=== PATIENT | male | born 1955 | race Caucasian/White ===

== ENCOUNTER → 2016-09-11 | Outpatient (CLI) | payer OTHER ==
[~2016-09-11] MED LIST: CRS/10 PO; PRLSR20 PO
[2016-09-11 09:27] LABS: HEMATOCRIT 48.4 % (42-52); MEAN CORPUSCULAR HEMOGLOBIN 31.5 pg (25-34); MEAN CORPUSCULAR HGB CONC 32.9 g/dl (32-36); MEAN PLATELET VOLUME 10.3 fL (7.4-10.4); PLATELET COUNT 244 K/uL (130-400); RED BLOOD COUNT 5.04 M/uL (4.7-6.1); WHITE BLOOD COUNT 7.84 K/uL (4.8-10.8)
[2016-09-11 09:41] LABS: ALT/SGPT 51 U/L (12-78); AST/SGOT 32 U/L (15-37); BLOOD UREA NITROGEN 15 mg/dl (7-18); BUN/CREATININE RATIO 13.7 (10-20); CARBON DIOXIDE 25 mmol/L (21-32); CHLORIDE 111 mmol/L (98-107); CHOLESTEROL 150 mg/dl (0-200); GLUCOSE 99 mg/dl (70-99); POTASSIUM 4.4 mmol/L (3.5-5.1); SODIUM 143 mmol/L (136-145); TRIGLYCERIDES 114 mg/dl (0-150); VERY LOW DENSITY LIPOPROT CALC 23 mg/dl
[2016-09-11 09:42] LABS: CALCIUM 9.4 mg/dl (8.5-10.1)
[2016-09-11 09:50] LABS: ESTIMATED AVERAGE GLUCOSE 120 mg/dl; HA1C FLAG Normal (Normal)
[2016-09-11 09:51] LABS: ALB/GLOB RATIO 1.1 (0.9-2); ALKALINE PHOSPHATASE 61 U/L (45-117); CHOLESTEROL/HDL RATIO 2.5; HDL CHOLESTEROL 59 mg/dl; LDL CHOLESTEROL CALCULATED 68 mg/dl; PROSTATE SPECIFIC ANTIGEN 0.868 ng/ml (0.000-4.000)
== END | disposition home or self-care (01) ==
LOC: C.LAB1850 07:35
PROVIDERS: ATTEND Internal Medicine Geriatric Medicine
DX: Z00.00 Encounter for general adult medical examination without abnormal findings (principal); E78.5 Hyperlipidemia, unspecified; M19.90 Unspecified osteoarthritis, unspecified site; R73.9 Hyperglycemia, unspecified

== ENCOUNTER → 2017-10-10 | Outpatient (CLI) | payer OTHER ==
--- NOTE | 2017-10-10 14:23 | DIAGNOSTIC IMAGING REPORT ---
CHEST 2 VIEWS ROUTINE HISTORY: 62 years-old Male CHEST PAIN acute atypical chest pain COMPARISON: None available TECHNIQUE: PA and lateral views of the chest FINDINGS: Cardiomediastinal and hilar silhouettes are within normal limits. There is no pneumothorax, pleural effusion, focal airspace consolidation or overt pulmonary edema. Mild right hemidiaphragmatic elevation. Bones of the chest appear grossly intact. IMPRESSION: No acute process. The above report was generated using voice recognition software. It may contain grammatical, syntax or spelling errors. Electronically signed by: Vinay Horton M.D. 10/10/2017 2:21 PM Dictated Date/Time: 10/10/2017 2:20 PM
== END | disposition home or self-care (01) ==
LOC: C.RADBC 14:07
PROVIDERS: ATTEND Physician Assistant Medical
DX: R07.89 Other chest pain (principal)

== ENCOUNTER → 2017-10-15 | Outpatient (CLI) | payer OTHER ==
--- NOTE | 2017-10-15 12:06 | DIAGNOSTIC IMAGING REPORT ---
SOFT TISS HEAD/NECK-THYROID HISTORY: Weight loss LOSING WEIGHT COMPARISON: None. FINDINGS: Right lobe: Maximum dimension 4.4 cm. Diffuse inhomogeneity of internal architecture. No well-defined nodular process. Left lobe: Maximum dimension 3.6 cm. Diffuse inhomogeneity of internal architecture. No well-defined nodules. Isthmus: No nodules. IMPRESSION: Diffusely heterogeneous thyroid bilaterally with no focal nodularity. Possibility of thyroiditis should be considered. The above report was generated using voice recognition software. It may contain grammatical, syntax or spelling errors. Electronically signed by: Esau Emanuel M.D. 10/15/2017 12:05 PM Dictated Date/Time: 10/15/2017 12:01 PM
== END | disposition home or self-care (01) ==
LOC: C.ULTR 11:19
PROVIDERS: ATTEND Physician Assistant Medical
DX: E06.1 Subacute thyroiditis (principal)

== ENCOUNTER 2023-09-04 11:18 | Inpatient (IN) ==
[2023-09-04] MEDS: ASPIRIN CHEW 324 MG PO STA (11:36)
[2023-09-04] MEDS: ONDANSETRON INJ 2 MG/ML 2 ML VIAL IV STA (11:36)
[2023-09-04] MEDS: METOPROLOL TARTRATE 1 MG/ML VIAL IV STA (11:38)
[2023-09-04] MEDS: TICAGRELOR 90 MG TAB PO ONE (11:38)
[2023-09-04] MEDS: HEPARIN SOD (PORCINE) 1000 UNIT/ML IV ONE (11:41)
[2023-09-04] MEDS: HEPARIN SOD (PORCINE) 1000 UNIT/ML ONE (11:41)
--- NOTE | 2023-09-04 11:48 | Emergency Department Note ---
Impression & Plan ST elevation myocardial infarction (STEMI), Chest pain ED Provider Note NAME: IVON LOGAN AGE: 68 SEX: M : 1955 ARRIVES VIA: Walk-In INFORMANT: Patient, ED PROVIDER(S): Rudy Shepherd DO CHIEF COMPLAINT: Chest pain HPI: The patient is a 68-year-old male who presented to the emergency department through triage for evaluation of chest pain. The patient noticed chest pain today while he was at rest at approximately 9 AM. The patient noticed some nausea. He had an episode of emesis. The patient denies having any fever. He denies having any coughing. He denies having any abdominal pain or back pain. The patient was seen in July of this year by his primary professor of languages. He is followed closely because of a family history of coronary artery disease. The patient did have a stress test last month with his primary care physician which showed no acute process. ROS: See above HPI for pertinent positives & negatives. A total of 10 systems reviewed and were otherwise negative. PAST MEDICAL HISTORY: See Below PAST SURGICAL HISTORY: See Below FAMILY HISTORY: See Below SOCIAL HISTORY: See Below HOME MEDICATIONS: See Below ALLERGIES: See Below VITALS: See Below PHYSICAL EXAMINATION: GENERAL: The patient is awake and alert. The patient is anxious appearing. EYES: The conjunctivae are clear. The pupils are round and reactive. EARS, NOSE, MOUTH AND THROAT: The nose is without any evidence of any deformity. NECK: The neck is nontender and supple. RESPIRATORY: Normal respiratory effort is noted there is no evidence of wheezing rhonchi or rales CARDIOVASCULAR: Regular rate and rhythm noted there no murmurs rubs or gallops normal S1 normal S2. GASTROINTESTINAL: The abdomen is soft. Abdomen is nontender. MUSCULOSKELETAL/EXTREMITIES: There is no evidence of gross deformity full range of motion is noted in the hips and shoulders. SKIN: There is no obvious evidence of any rash. There are no petechiae, pallor or cyanosis noted. Pulses were symmetric in both wrist. NEUROLOGIC: Patient is awake alert and oriented x3 MEDICAL DECISION MAKING: The patient is a 68-year-old male who presented to the emergency department for an evaluation of chest pain. The patient described chest pain that he felt was in his anterior chest and into his neck. The patient does not have a history of coronary artery disease but he has a strong family history of coronary artery disease. He has a sibling who had coronary artery disease with complications in his 50s. The patient was treated initially with aspirin. He was further treated with Brilinta heparin and Lopressor after he was evaluated by the paleobotanist in the emergency department. I discussed the patient's EKG with him. I did feel that he would be a good candidate for consideration for interventional cardiology involvement. After his interview with the patient the paleobotanist felt the patient should be evaluated in the [facility] for further management. I discussed the patient's condition also with the on-call [facility]ist. Triage Nursing notes reviewed. Vital Signs: reviewed and remarkable for elevated blood pressure. Differential diagnosis: Cardiac ischemia, aortic dissection, pulmonary embolism, pneumothorax, pneumonia, pericarditis, myocarditis, esophageal rupture, GERD, cholecystitis, pancreatitis, musculoskeletal, as well as other pathologies. ER treatment provided: See below Diagnostics interpreted by me: ECG: EKG was obtained in the emergency department my interpretation is normal sinus rhythm at 81 bpm. There is no ectopy. ST elevations were noted in the anterior leads with reciprocal changes in the inferior leads. This could be consistent with acute myocardial infarction, this was compared to a tracing from April 07, 2004. There is significant changes noted suggestive of ischemia. A second EKG was obtained in the emergency department. My interpretation is normal sinus rhythm at 82 bpm. There is no ectopy. ST segment elevations were noted in the anterior leads with reciprocal changes in the inferior leads. This compares similar to the initial tracing. Cardiac Monitoring: An order was placed for continuous cardiac monitoring. The monitor shows a rate of 75 bpm with sinus rhythm Laboratory studies: As stated above and show below. Imaging studies: See below. Radiographic imaging was reviewed by myself Consultation(s): I discussed this case with Dr. Mendoza who is on for interventional cardiology. He evaluated the patient in the emergency department. I discussed this case with Dr. Martin [facility] ED COURSE: Procedures: none Critical Care: I have personally spent greater than 35 minutes of critical care time in the direct management of this patient. This includes bedside care, interpretation of diagnostic studies, and testing, discussion with consultants, patient, and family members, and other required patient management activities. This 35 minutes is in excess of all separately billable procedures. 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 Medical History Thyroid disease Bilateral carotid artery disease LAST CHECK AFTER RADIATION COMPLETE LAST YR, "BOTH UNDER 50%" Inguinal hernia Bilateral Tubular adenoma of colon HX Gastroesophageal reflux disease Surgical History History of biopsy 09/03/19 - Right Base of Tongue - Squamous Cell - HPV Pos Status post tendon repair HX 2011 - left arm--hardware in place History of colonoscopy with polypectomy 2014 History of tooth extraction 2016 - a cracked molar History of surgical removal of pilonidal cyst 1968, 1970, 1992 History of tonsillectomy as a child Family History Mother , Passed age 90 of dementia complications Alzheimer disease Hx of CABG Myocardial infarction Brother Coronary heart disease Hx of CABG Father Hx of CABG Sister No problems noted. Other Has no children No family history of adverse response to anesthesia Denies family history of Ovarian cancer Prostate cancer Breast cancer Lung cancer Colorectal cancer Cancer Social History Smoking Status: Never smoker Second Hand Exposure: Yes (Mother and Father smoked in home); Do You Dip or Chew Tobacco: No; Hx Alcohol Use: Yes Alcohol type: wine and hard liquor Alcohol Intake Frequency Comment: Wine with dinner at times daily sometimes Hx Substance Use: No Preferred Language: Qatari Communication Ability: Effective Visual Impairment: Limited Hearing Ability: Normal Children Teacher Required: No Beliefs That Will Affect Care: Mormonism marital status: Current Living Situation: Spouse Current Living Situation Comment: current occupational status: retired current occupation: Works for [employer] How many Children do You have: 0 Feels Safe at Home: Yes Childhood Exposure to Second-Hand Smoke: Yes Diet: regular caffeine: Yes (Daily 1-2 cups/day ) during the past year weight has: remained stable Dental Care, Regularly: Yes Physical Activity Frequency: 3-4 Times per Week Seatbelt Use: always Sunscreen Use: Yes Assistive Devices: Glasses Allergies Allergies Allergy/AdvReac Type Severity Reaction Status Date / Time atorvastatin [From Lipitor] Allergy Unknown heart Verified 08/07/23 11:37 palpitation bee venom protein (honey bee) Allergy Unknown swelling Verified 08/07/23 11:37 as a child Penicillins Allergy Unknown SWELLING Verified 08/07/23 11:37 A CHILD simvastatin Allergy Unknown heart Verified 08/07/23 11:37 palpitation tetanus toxoid, adsorbed Allergy Unknown SWELLING Verified 08/07/23 11:37 A CHILD Home Meds Previous Rx's Medication Instructions Recorded meloxicam 15 mg tablet 15 mg PO UD PRN back pain #30 tabs 08/28/21 omeprazole 20 mg capsule,delayed 20 mg PO QAM #90 caps 07/22/23 release levothyroxine 88 mcg tablet 88 mcg PO QAM #90 tabs 08/07/23 rosuvastatin 10 mg tablet 10 mg PO DAILY #90 tabs 08/07/23 Results & Data (ED) Vital Signs Vital Signs - 24 hr 09/04/23 11:20 09/04/23 11:33 09/04/23 11:38 Temperature 36.1 C L Temperature Source Temporal Artery Scan Pulse Rate 84 79 89 Pulse Rate [Apical] Pulse Rhythm Regular Regular Pulse Strength Normal Respiratory Rate 20 20 Respiratory Effort / Characteristics Non-Labored Spontaneous Respiratory Depth Normal Respiratory Pattern Blood Pressure 210/105 H Blood Pressure [Left Arm] Blood Pressure [Right Arm] Blood Pressure Mean 140 Blood Pressure Mean [Left Arm] Blood Pressure Mean [Right Arm] Blood Pressure Position Sitting Blood Pressure Position [Left Arm] Pulse Oximetry 98 97 Oxygen Delivery Method Room Air Room Air Sepsis Recent Fever Within 48 Hours No Sepsis New/Unexplained Change in Mental Status N/A Sepsis Action Taken by Nursing No Action Required 09/04/23 11:44 09/04/23 13:30 09/04/23 13:45 Temperature Temperature Source Pulse Rate Pulse Rate [Apical] 74 76 75 Pulse Rhythm Pulse Strength Respiratory Rate 20 16 16 Respiratory Effort / Characteristics Non-Labored Spontaneous Non-Labored Spontaneous Non-Labored Spontaneous Respiratory Depth Normal Normal Normal Respiratory Pattern Regular Regular Blood Pressure Blood Pressure [Left Arm] 152/92 H 155/94 H Blood Pressure [Right Arm] 191/113 H Blood Pressure Mean Blood Pressure Mean [Left Arm] 112 114 Blood Pressure Mean [Right Arm] 139 Blood Pressure Position Blood Pressure Position [Left Arm] Sitting Sitting Pulse Oximetry 97 95 95 Oxygen Delivery Method Room Air Room Air Sepsis Recent Fever Within 48 Hours Sepsis New/Unexplained Change in Mental Status Sepsis Action Taken by Nursing 09/04/23 14:00 Temperature Temperature Source Pulse Rate Pulse Rate [Apical] 75 Pulse Rhythm Pulse Strength Respiratory Rate 16 Respiratory Effort / Characteristics Non-Labored Spontaneous Respiratory Depth Normal Respiratory Pattern Regular Blood Pressure Blood Pressure [Left Arm] Blood Pressure [Right Arm] Blood Pressure Mean Blood Pressure Mean [Left Arm] Blood Pressure Mean [Right Arm] Blood Pressure Position Blood Pressure Position [Left Arm] Sitting Pulse Oximetry 95 Oxygen Delivery Method Room Air Sepsis Recent Fever Within 48 Hours Sepsis New/Unexplained Change in Mental Status Sepsis Action Taken by Long-Term Medications Current Medication List: was personally reviewed by me Laboratory Data Attestation: I reviewed the patient's lab results. 09/04/23 11:26 09/04/23 11:26 Lab Results 09/04/23 09/04/23 09/04/23 Range/Units 11:26 12:15 12:57 WBC 8.72 (4.8-10.8) K/ul RBC 5.48 (4.70-6.10) M/uL Hgb 17.4 (14.0-18.0) g/dl Hct 51.0 (42.0-52.0) % MCV 93.1 (80.0-100.0) fL MCH 31.8 (25.0-34.0) pg MCHC 34.1 (32.0-36.0) g/dL RDW Std Deviation 45.1 (36.4-46.3) fL RDW Coeff of Lorrie 13.2 (11.5-14.5) % Plt Count 295 (130-400) K/uL MPV 9.8 (9.4-12.4) fL Immature Gran % (Auto) 0.8 % Neut % (Auto) 72.9 % Lymph % (Auto) 13.2 % [place] % (Auto) 9.4 % Eos % (Auto) 2.8 % Baso % (Auto) 0.9 % Neut # (Auto) 6.36 (1.40-6.50) K/uL Lymph # (Auto) 1.15 L (1.20-3.40) K/uL Sol[place] # (Auto) 0.82 H (0.11-0.59) K/uL Eos # (Auto) 0.24 (0.00-0.50) K/uL Baso # (Auto) 0.08 (0.00-0.20) K/uL Immature Gran # (Auto) 0.07 (0.01-0.20) K/uL PT 10.6 (9.0-12.0) Seconds INR 1.0 (0.9-1.1) APTT 25 (21-31) Seconds PTT Ratio 0.9 Activ Coag Time Kaolin 330 H 214 H (94-140) SECONDS Sodium 135 L (136-145) mmol/L Potassium 4.1 (3.5-5.1) mmol/L Chloride 100 (98-107) mmol/L Carbon Dioxide 26 (21-32) mmol/L Anion Gap 9 (3-11) BUN 13 (6-23) mg/dl Creatinine 1.08 (0.6-1.4) mg/dl Est Cr Clr Drug Dosing 71.0 ml/min Est GFR ( Amer) 80.2 ml/min Est GFR (Non-Af Amer) 69.2 ml/min BUN/Creatinine Ratio 12.0 (10-20) Glucose 161 H (70-99(Fasting)) mg/dl Calcium 10.6 H (8.6-10.3) mg/dl Magnesium 2.1 (1.7-2.4) mg/dl Total Bilirubin 0.5 (0.2-1.0) mg/dl AST 43 H (13-39) U/L ALT 39 (7-52) U/L Alkaline Phosphatase 76 (34-104) U/L Troponin I High Sens 240.3 H* (0-20) pg/ml Total Protein 8.3 (6.0-8.3) gm/dl Albumin 4.7 (3.4-5.0) gm/dl Globulin 3.6 (2.5-4.0) gm/dl Albumin/Globulin Ratio 1.3 (0.9-2) 09/04/23 09/04/23 Range/Units 13:11 13:25 WBC (4.8-10.8) K/ul RBC (4.70-6.10) M/uL Hgb (14.0-18.0) g/dl Hct (42.0-52.0) % MCV (80.0-100.0) fL MCH (25.0-34.0) pg MCHC (32.0-36.0) g/dL RDW Std Deviation (36.4-46.3) fL RDW Coeff of Lorrie (11.5-14.5) % Plt Count (130-400) K/uL MPV (9.4-12.4) fL Immature Gran % (Auto) % Neut % (Auto) % Lymph % (Auto) % Sol[place] % (Auto) % Eos % (Auto) % Baso % (Auto) % Neut # (Auto) (1.40-6.50) K/uL Lymph # (Auto) (1.20-3.40) K/uL Sol[place] # (Auto) (0.11-0.59) K/uL Eos # (Auto) (0.00-0.50) K/uL Baso # (Auto) (0.00-0.20) K/uL Immature Gran # (Auto) (0.01-0.20) K/uL PT (9.0-12.0) Seconds INR (0.9-1.1) APTT (21-31) Seconds PTT Ratio Activ Coag Time Kaolin 617 H 207 H (94-140) SECONDS Sodium (136-145) mmol/L Potassium (3.5-5.1) mmol/L Chloride (98-107) mmol/L Carbon Dioxide (21-32) mmol/L Anion Gap (3-11) BUN (6-23) mg/dl Creatinine (0.6-1.4) mg/dl Est Cr Clr Drug Dosing ml/min Est GFR ( Amer) ml/min Est GFR (Non-Af Amer) ml/min BUN/Creatinine Ratio (10-20) Glucose (70-99(Fasting)) mg/dl Calcium (8.6-10.3) mg/dl Magnesium (1.7-2.4) mg/dl Total Bilirubin (0.2-1.0) mg/dl AST (13-39) U/L ALT (7-52) U/L Alkaline Phosphatase (34-104) U/L Troponin I High Sens (0-20) pg/ml Total Protein (6.0-8.3) gm/dl Albumin (3.4-5.0) gm/dl Globulin (2.5-4.0) gm/dl Albumin/Globulin Ratio (0.9-2) Administered Medications Discontinued Medications Aspirin (Aspirin Chew 324 Mg) 324 mg PO NOW STA Stop: 09/04/23 11:34 Last Admin: 09/04/23 11:36 Dose: 324 mg Documented By: RODRIGUE Fentanyl Citrate (Fentanyl Citrate Pf 100 Mcg/2 Ml Vial) Confirm Administered Dose 100 mcg .ROUTE .STK-MED ONE Stop: 09/04/23 11:43 Last Admin: 09/04/23 13:30 Dose: 100 mcg Documented By: SULAIMAN Heparin Sodium (Porcine) (Heparin Sod (Porcine) 1000 Unit/Ml) 5,000 units IV NOW ONE Stop: 09/04/23 11:40 Last Admin: 09/04/23 11:41 Dose: 5,000 units Documented By: RODRIGUE Co-signed By: PRUDENCE Heparin Sodium (Porcine) (Heparin Sod (Porcine) 1000 Unit/Ml) Confirm Administered Dose 1,000 units .ROUTE .STK-MED ONE Stop: 09/04/23 11:41 Last Admin: 09/04/23 11:41 Dose: Not Given Documented By: RODRIGUE Heparin Sodium (Porcine) (Heparin (Porcine) 1000 Unit/Ml 10 Ml ([facility] Use Only)) Confirm Administered Dose 10,000 units .ROUTE .STK-MED ONE Stop: 09/04/23 11:42 Last Admin: 09/04/23 13:30 Dose: 4,000 units Documented By: SULAIMAN Heparin Sodium/Sodium Chloride (Heparin In Nss Infusion 1000 Unit/500 Ml (2 U/Ml) Bag) Confirm Administered Dose 3,000 units IV .STK-MED ONE Stop: 09/04/23 11:43 Last Admin: 09/04/23 13:31 Dose: 3,000 units Documented By: BELEN Ioversol (Optiray 350) Confirm Administered Dose 1 ml .ROUTE .STK-MED ONE Stop: 09/04/23 11:44 Last Admin: 09/04/23 13:31 Dose: 300 ml Documented By: BELEN Lidocaine HCl (Lidocaine 1% Local 20 Ml Vial) Confirm Administered Dose 20 ml .ROUTE .STK-MED ONE Stop: 09/04/23 11:34 Last Admin: 09/04/23 13:29 Dose: 20 ml Documented By: BELEN Metoprolol Tartrate (Metoprolol Tartrate 1 Mg/Ml Vial) 5 mg IV NOW STA Stop: 09/04/23 11:37 Last Admin: 09/04/23 11:38 Dose: 5 mg Documented By: RODRIGUE Midazolam HCl (Midazolam Hcl 1 Mg/Ml 2ml Vial) Confirm Administered Dose 2 mg .ROUTE .STK-MED ONE Stop: 09/04/23 11:42 Last Admin: 09/04/23 13:30 Dose: 2 mg Documented By: SULAIMAN Nicardipine HCl (Nicardipine Hcl Inj 2.5 Mg/Ml 10 Ml Amp) Confirm Administered Dose 25 mg .ROUTE .STK-MED ONE Stop: 09/04/23 11:43 Last Admin: 09/04/23 13:31 Dose: 25 mg Documented By: BELEN Nitroglycerin/Dextrose (Nitroglycerin/D5w 100mcg/Ml 20ml Syr) Confirm Administered Dose 2,000 mcg .ROUTE .STK-MED ONE Stop: 09/04/23 11:44 Last Admin: 09/04/23 13:32 Dose: 2,000 mcg Documented By: BELEN Ondansetron HCl (Ondansetron Inj 2 Mg/Ml 2 Ml Vial) 4 mg IV NOW STA Stop: 09/04/23 11:34 Last Admin: 09/04/23 11:36 Dose: 4 mg Documented By: RODRIGUE Ticagrelor (Ticagrelor 90 Mg Tab) 180 mg PO ONE ONE Stop: 09/04/23 11:37 Last Admin: 09/04/23 11:38 Dose: 180 mg Documented By: RODRIGUE Imaging Data Attestation: I personally reviewed and interpreted this imaging study as follows: My Impression: 1 view chest x-ray was obtained in the emergency department. My interpretation is no free air or definite infiltrate, final report below Radiologist's Impression: Chest X-Ray 09/04/23 11:23 XR chest 1V portable CLINICAL HISTORY: Chest pain, nonspecific TECHNIQUE: Single frontal radiograph of the chest was obtained. Comparison: None available at the time of this dictation. FINDINGS: No lines and tubes are seen. Calcified aortic knob is seen. Right elevated hemidiaphragm. No evidence of pleural effusion or pneumothorax. IMPRESSION: No acute chest disease. ACT 112: Negative or not required by law. Electronically signed by: Osmel Birch M.D. 09/04/2023 12:00 PM Discharge Plan Visit Data Chief Complaint: Chest Pain Stated Complaint: CHEST PAINS, NAUSEA ED Provider: Rudy Shepherd Discharge Problem: ST elevation myocardial infarction (STEMI), Chest pain Patient Disposition: Being Evaluated by Hospitalist Discharge Instructions Interventions: ED Discharge Assessment Last Done: 09/04/23 11:49 Discharge Problem: ST elevation myocardial infarction (STEMI) Qualifiers: Involved coronary artery: unspecified coronary artery Qualified Code(s): I21.3 - ST elevation (STEMI) myocardial infarction of unspecified site Chest pain Qualifiers: Chest pain type: unspecified Qualified Code(s): R07.9 - Chest pain, unspecified
[2023-09-04 11:50] LABS: Basophils # (auto) 0.08 K/uL (0.00-0.20); Basophils % (auto) 0.9 %; Eosinophils # (auto) 0.24 K/uL (0.00-0.50); Eosinophils % (auto) 2.8 %; Hemoglobin 17.4 g/dl (14.0-18.0); Immature Granulocytes # (auto) 0.07 K/uL (0.01-0.20); Immature Granulocytes % (auto) 0.8 %; Lymphocytes # (auto) 1.15 K/uL (1.20-3.40); Lymphocytes % (auto) 13.2 %; Mean Corpuscular Hemoglobin 31.8 pg (25.0-34.0); Mean Corpuscular Hgb Conc 34.1 g/dL (32.0-36.0); Mean Corpuscular Volume 93.1 fL (80.0-100.0); Mean Platelet Volume 9.8 fL (9.4-12.4); Monocytes # (auto) 0.82 K/uL (0.11-0.59); Monocytes % (auto) 9.4 %; Neutrophils # (auto) 6.36 K/uL (1.40-6.50); Neutrophils % (auto) 72.9 %; Platelet Count 295 K/uL (130-400); RDW Coefficient of Variation 13.2 % (11.5-14.5); RDW Standard Deviation 45.1 fL (36.4-46.3); Red Blood Count 5.48 M/uL (4.70-6.10); White Blood Count 8.72 K/ul (4.8-10.8)
--- NOTE | 2023-09-04 12:01 | XRay Report ---
XR chest 1V portable CLINICAL HISTORY: Chest pain, nonspecific TECHNIQUE: Single frontal radiograph of the chest was obtained. Comparison: None available at the time of this dictation. FINDINGS: No lines and tubes are seen. Calcified aortic knob is seen. Right elevated hemidiaphragm. No evidence of pleural effusion or pneumothorax. IMPRESSION: No acute chest disease. ACT 112: Negative or not required by law. Electronically signed by: Osmel Birch M.D. 09/04/2023 12:00 PM
[2023-09-04 12:05] LABS: Albumin Globulin Ratio 1.3 (0.9-2); Albumin Level 4.7 gm/dl (3.4-5.0); Bilirubin,Total 0.5 mg/dl (0.2-1.0); Calcium 10.6 mg/dl (8.6-10.3); Est GFR (African American) 80.2 ml/min; Est GFR (Non-African American) 69.2 ml/min; Globulin 3.6 gm/dl (2.5-4.0); Potassium 4.1 mmol/L (3.5-5.1); Total Protein 8.3 gm/dl (6.0-8.3)
[2023-09-04 12:15] LABS: Troponin I High Sensitivity 240.3 pg/ml (0-20)
[2023-09-04 12:17] LABS: Partial Thromboplastin Ratio 0.9; Partial Thromboplastin Time 25 Seconds (21-31); Prothrombin Time 10.6 Seconds (9.0-12.0)
[2023-09-04 12:42] LABS: Magnesium 2.1 mg/dl (1.7-2.4)
[2023-09-04] MEDS: LIDOCAINE 1% LOCAL 20 ML VIAL ONE (13:29)
[2023-09-04] MEDS: MIDAZOLAM HCL 1 MG/ML 2ML VIAL ONE (13:30)
[2023-09-04] MEDS: HEPARIN (PORCINE) 1000 UNIT/ML 10 ML (CATH LAB USE ONLY) ONE (13:30)
[2023-09-04] MEDS: fentaNYL citrate PF 100 MCG/2 ML VIAL ONE (13:30)
[2023-09-04] MEDS: niCARdipine HCL INJ 2.5 MG/ML 10 ML AMP ONE (13:31)
[2023-09-04] MEDS: OPTIRAY 350 ONE (13:31)
[2023-09-04] MEDS: NITROGLYCERIN/D5W 100MCG/ML 20ML SYR ONE (13:32)
[2023-09-04] MEDS ORDERED: NITROGLYCERIN SL 0.4 MG/TAB TAB SL PRN (13:52)
--- NOTE | 2023-09-04 14:02 | Post Anesthesia Assessment ---
Date of Service September 04, 2023 Post Sedation Assessment Vital Signs Temp Pulse Pulse Resp BP BP BP 09/04/23 13:45 75 16 09/04/23 13:30 76 16 152/92 H 09/04/23 11:44 74 20 191/113 H 09/04/23 11:38 89 09/04/23 11:33 79 20 09/04/23 11:20 36.1 C L 84 20 210/105 H Pulse Ox O2 Del Method 09/04/23 13:45 95 Room Air 09/04/23 13:30 95 Room Air 09/04/23 11:44 97 09/04/23 11:38 09/04/23 11:33 97 Room Air 09/04/23 11:20 98 Room Air Recovery Score Activity: Moves 4 extremities Respiration: Deep Breath/Cough Circulation: +/-20% PreAnes Value Consciousness: Fully Awake Oxygen Saturation: > 92% On Room Air Post Anesthesia Score: 10 Discharge Sedation Level of Care: Fast Track Phase II Post Sedation Plan On clinical assessment, the patient appears to have tolerated the sedation without complications. Patient is recovering as anticipated. Patient will continue to be monitored by nursing and may be discharged when sedation discharge criteria are met per below protocol. Upon Completions of procedure up to 15 minutes continue every 5 minute vital signs and the P.A.R. score; then discharge to a Phase I or Fast Track to Phase II per the following guidelines: * Discharge Patient to appropriate Phase II area if PAR is 8 or greater or return to pre- procedure baseline. The post - procedure orders will be as directed. * If PAR score is less than 8 or not return to pre-procedure baseline then patient will follow Phase I monitoring till PAR is reached for Phase II. The Phase I may be done in procedure room or may call to secure a Phase I area. * If naloxone or flumazenil are used for reversal, hold in Phase I for continued monitoring from when last reversal dose was given for a minimum of 60 minutes or longer pending the nurse and/or physician discretion of patient condition before discharge to Phase II. Please call the Sedation Physician to re-evaluate and complete post-note for discharge to Phase II area. Do NOT discharge from procedure sedation or Phase 1 until post- sedation evaluation note is complete by procedure /sedation MD Sedation Discharge Instructions to be given to the patient at discharge to home. [facility] Procedure Codes (Charges) Indication for Procedure Indication for procedure: STEMI S/P PCI
--- NOTE | 2023-09-04 15:25 | Critical Care Consultation ---
Date of Consultation September 04, 2023 Assessment & Plan (1) Chest pain: (2) History of throat cancer: (3) Dyslipidemia: (4) Hypothyroidism: (5) Primary squamous cell carcinoma of base of tongue: (6) Gastroesophageal reflux disease: (7) Calf pain: Plan -- Coronary artery disease S/p FLAKITO LAD and RCA Continue with dual antiplatelet therapy -- Hypertension New Has been started on metoprolol 25 twice daily --Calf pain Homans' sign negative Does have +2 pitting edema bilateral lower extremity, L>R which is chronic -- Hypothyroidism On levothyroxine at home --Mildly elevated calcium 10.6 with normal albumin --History of head and neck cancer, right side of the tongue S/p surgery radiation and chemo --Elevated right hemidiaphragm Likely secondary to surgery and radiation on the right side --Prophylaxis VTE: IPC GI: Pantoprazole Lines: Peripheral Diet: Cardiac Plan: Strict in and out Continue with dual antiplatelet therapy. Follow-up 2D echo Follow-up Doppler lower extremity given the recent travel as well as the calf pain Trend EKG and troponin Give him amlodipine 10 mg. The patient's blood pressure is still high then metoprolol 25 mg will be given now Follow-up parathyroid hormone given the mildly elevated calcium Please note the above document was generated using voice recognition software. It may contain grammatical, syntax or spelling errors.Any formal questions or concerns about the content, text or information contained within the body of this dictation should be directly addressed to the provider for clarification. History of Present Illness Attending Physician: Marco Mendoza MD, PhD History of Present Illness 68-year-old male present to the hospital with complaints of retrosternal chest pain Past medical history: GERD, hypothyroidism Patient went for cardiac cath and stents were placed in the RCA as well as LAD. Sent for further management in the ICU. The time of examination patient's was also in the room His systolic blood pressure was in the 170s diastolic in 100s. He was not complaining of any chest pain He stated that the heartburn-like sensation and chest tightness has resolved. Denies any dizziness. No nausea or vomiting. Patient recently traveled to [place]. He then had back in [place] yesterday and then flew from [place]. Does complain of some calf tenderness. Homans' sign was negative. No dysuria, or diarrhea. Denies any shortness of breath No headache, no blurry vision No dysuria or diarrhea Social history: Lifetime non-smoker Allergies Allergy/AdvReac Type Severity Reaction Status Date / Time atorvastatin [From Lipitor] Allergy Unknown heart Verified 08/07/23 11:37 palpitation bee venom protein (honey bee) Allergy Unknown swelling Verified 08/07/23 11:37 as a child Penicillins Allergy Unknown SWELLING Verified 08/07/23 11:37 A CHILD simvastatin Allergy Unknown heart Verified 08/07/23 11:37 palpitation tetanus toxoid, adsorbed Allergy Unknown SWELLING Verified 08/07/23 11:37 A CHILD Home Medications Medication Instructions Recorded Confirmed Type meloxicam 15 mg tablet 15 mg PO UD PRN back pain #30 tabs 08/28/21 08/07/23 Rx omeprazole 20 mg capsule,delayed 20 mg PO QAM #90 caps 07/22/23 08/07/23 Rx release levothyroxine 88 mcg tablet 88 mcg PO QAM #90 tabs 08/07/23 08/07/23 Rx rosuvastatin 10 mg tablet 10 mg PO DAILY #90 tabs 08/07/23 08/07/23 Rx Patient History Medical History Thyroid disease Bilateral carotid artery disease LAST CHECK AFTER RADIATION COMPLETE LAST YR, "BOTH UNDER 50%" Inguinal hernia Bilateral Tubular adenoma of colon HX Gastroesophageal reflux disease Surgical History History of biopsy 09/03/19 - Right Base of Tongue - Squamous Cell - HPV Pos Status post tendon repair HX 2011 - left arm--hardware in place History of colonoscopy with polypectomy 2014 History of tooth extraction 2016 - a cracked molar History of surgical removal of pilonidal cyst 1968, 1970, 1992 History of tonsillectomy as a child Family History Mother , Passed age 90 of dementia complications Alzheimer disease Hx of CABG Myocardial infarction Brother Coronary heart disease Hx of CABG Father Hx of CABG Sister No problems noted. Other Has no children No family history of adverse response to anesthesia Denies family history of Ovarian cancer Prostate cancer Breast cancer Lung cancer Colorectal cancer Cancer Social History Smoking Status: Never smoker Second Hand Exposure: Yes (Mother and Father smoked in home); Do You Dip or Chew Tobacco: No; Hx Alcohol Use: Yes Alcohol type: wine Alcohol Intake Frequency Comment: Wine with dinner at times daily sometimes Hx Substance Use: Yes Last Used Substance: Days (ago) Last Used Substance Other:: 09/03/2023 Substance Use Type Other:: couple times a week.. Preferred Language: Romanian Communication Ability: Effective Visual Impairment: Limited Hearing Ability: Normal Medication Tech Required: No Beliefs That Will Affect Care: None marital status: Current Living Situation: Spouse Current Living Situation Comment: current occupational status: retired current occupation: Works for [employer] How many Children do You have: 0 Other Information That Helps Us Care for You: No Feels Safe at Home: Yes Safety Concerns: Feels Safe At This Time Childhood Exposure to Second-Hand Smoke: Yes Diet: regular caffeine: Yes (Daily 1-2 cups/day ) during the past year weight has: remained stable Dental Care, Regularly: Yes Physical Activity Frequency: 3-4 Times per Week Seatbelt Use: always Sunscreen Use: Yes Assistive Devices: Glasses Review of Systems 2 Review of Systems: All systems reviewed & are unremarkable except as noted in HPI & below Physical Exam 2 Physical Exam: Constitutional: No acute distress HEENT: EOMI, PERRLA Respiratory system: Decreased into the right lower side, no wheeze, rhonchi, mild crackles bilateral lower lobes CVS: S1-S2 positive, no murmurs or gallops Abdomen: Soft, nontender, nondistended, positive bowel sounds x4, obese Extremities: +2 pulses bilaterally radialis/ dorsalis pedis, no cyanosis, +2 pitting edema bilateral lower extremity Neuro: Awake alert oriented x3 Psych: Normal mood and affect G/U: No Eli Skin: no rashes, warm and dry Lymphatic: no cervical or axillary lymphadenopathy Results & Data Results & Data Vital Signs (Past 12 Hours) Vital Signs Temp Pulse Pulse Resp BP BP BP 09/04/23 15:15 71 18 176/109 H 09/04/23 14:48 72 21 09/04/23 14:31 36.3 C L 70 18 174/102 H 09/04/23 14:00 75 16 09/04/23 13:45 75 16 155/94 H 09/04/23 13:30 76 16 152/92 H 09/04/23 11:44 74 20 191/113 H 09/04/23 11:38 89 09/04/23 11:33 79 20 09/04/23 11:20 36.1 C L 84 20 210/105 H Pulse Ox O2 Del Method 09/04/23 15:15 97 09/04/23 14:48 97 09/04/23 14:31 97 Room Air 09/04/23 14:00 95 Room Air 09/04/23 13:45 95 Room Air 09/04/23 13:30 95 Room Air 09/04/23 11:44 97 09/04/23 11:38 09/04/23 11:33 97 Room Air 09/04/23 11:20 98 Room Air Laboratory Results 09/04/23 11:26 09/04/23 11:26 Coding Level of Care Code 21429 IN/OBS CONSULT LVL 4,60M Diagnoses Chest pain R07.9 Chest pain type: unspecified History of throat cancer Z85.819 Dyslipidemia E78.5 Hypothyroidism E03.9 Primary squamous cell carcinoma of base of tongue C01 Gastroesophageal reflux disease K21.9 Calf pain M79.669 (1) Chest pain Chest pain type: unspecified Qualified Code(s): R07.9 - Chest pain, unspecified
[2023-09-04] MEDS: SODIUM CHLORIDE 0.9% 1,000 ML IV SCH (15:30)
[2023-09-04] MEDS: amLODIPine BESYLATE 5 MG TAB PO ONE (15:34)
[2023-09-04] MEDS: PANTOprazole 40 MG TAB PO SCH (15:49)
[2023-09-04] MEDS: ICU Protocol for HYPERglycemia SCH (15:55)
--- NOTE | 2023-09-04 17:07 | Ultrasound Report ---
US venous doppler LE BI CLINICAL HISTORY: calf cramping s/p 9 hour flight TECHNIQUE: Bilateral lower extremity real-time compression venous ultrasound with Color Doppler imagi ng. Utilizing real-time ultrasonic imaging multiple real time high-resolution ultrasonic images with compression and noncompression maneuvers of the deep venous system in addition to color doppler imagi ng were performed from the common femoral vein through the proximal calf veins. COMPARISON: None available at the time of this dictation. FINDINGS/IMPRESSION: Currently there is normal compressibility of the deep venous system from the common femoral vein thro ugh the proximal calf veins. No superficial venous thrombosis is identified. ACT 112: Negative or not required by law. Electronically signed by: Osmel Birch M.D. 09/04/2023 5:06 PM
[2023-09-04 17:11] LABS: Estimated Average Glucose 131 mg/dl; Hemoglobin A1C 6.2 % (4.5-5.6)
--- NOTE | 2023-09-04 17:37 | History & Physical Report ---
Date of Service September 04, 2023 Assessment & Plan (1) ST elevation myocardial infarction (STEMI): Plan: s/p cardiac catheterization - report pending ASA, Brilinta, metoprolol, atorvastatin TTE in AM Appreciate ICU and cardiology management (2) Gastroesophageal reflux disease: Plan: Switch omeprazole for pantoprazole per hospital formulary (3) Hypothyroidism: Plan: TSH WNL in July, no need to repeat Continue his usual levothyroxine dosing Plan VTE Prophylaxis - dual antiplatelets Diet - heart healthy Disposition - admit to ICU Admission and Anticipated Discharge Date Admission Date: September 04, 2023 History of Present Illness Chief Complaint: Chest pain Primary Care Provider: Shannon Holcomb DO Vincenzo Li is a 68 year old male with significant family history of coronary artery disease who presents to the ER with chest pain. Severity 8/10 chest pain started today around 9am. Associated nausea and vomiting. No diaphoresis or shortness of breath. Substernal. Worse on lying flat. No change on exertion. No radiation. Initially felt it was heartburn but after 2 hours of it becoming persistently he decided to come to the ER. He reports arriving back from [place] yesterday and drove back from [place]. Leg edema is not new and he has no leg pain. No palpitations or dizziness. Patient was seen post cardiac catheterization with resolution of his pain. Allergies Allergy/AdvReac Type Severity Reaction Status Date / Time atorvastatin [From Lipitor] Allergy Unknown heart Verified 08/07/23 11:37 palpitation bee venom protein (honey bee) Allergy Unknown swelling Verified 08/07/23 11:37 as a child Penicillins Allergy Unknown SWELLING Verified 08/07/23 11:37 A CHILD simvastatin Allergy Unknown heart Verified 08/07/23 11:37 palpitation tetanus toxoid, adsorbed Allergy Unknown SWELLING Verified 08/07/23 11:37 A CHILD Home Medications Medication Instructions Recorded Confirmed Type meloxicam 15 mg tablet 15 mg PO UD PRN back pain #30 tabs 08/28/21 09/04/23 Rx omeprazole 20 mg capsule,delayed 20 mg PO QAM #90 caps 07/22/23 09/04/23 Rx release levothyroxine 88 mcg tablet 88 mcg PO QAM #90 tabs 08/07/23 09/04/23 Rx rosuvastatin 10 mg tablet 10 mg PO DAILY #90 tabs 08/07/23 09/04/23 Rx Past Med/Surg History Problem List Calf pain Gastroesophageal reflux disease Chest pain (Acute) ST elevation myocardial infarction (STEMI) (Acute) Elevated hemoglobin A1c History of throat cancer LAST YR, HX RADIATION - TREATMENTS COMPLETE NOV 2019 Elevated lipoprotein A level Cervical radiculopathy Shoulder pain Impaired glucose metabolism History of colon polyps Coronary artery calcification seen on CAT scan Dyslipidemia Hypothyroidism Cholelithiasis Hepatic steatosis Elevation of levels of liver transaminase levels Primary squamous cell carcinoma of base of tongue (Chronic 09/03/19) Amira's thyroiditis Medical History Thyroid disease Bilateral carotid artery disease LAST CHECK AFTER RADIATION COMPLETE LAST YR, "BOTH UNDER 50%" Inguinal hernia Bilateral Tubular adenoma of colon HX Surgical History History of biopsy 09/03/19 - Right Base of Tongue - Squamous Cell - HPV Pos Status post tendon repair HX 2011 - left arm--hardware in place History of colonoscopy with polypectomy 2014 History of tooth extraction 2016 - a cracked molar History of surgical removal of pilonidal cyst 1968, 1970, 1992 History of tonsillectomy as a child Family History Mother , Passed age 90 of dementia complications Alzheimer disease Hx of CABG Myocardial infarction Brother Coronary heart disease Hx of CABG Father Hx of CABG Sister No problems noted. Other Has no children No family history of adverse response to anesthesia Denies family history of Ovarian cancer Prostate cancer Breast cancer Lung cancer Colorectal cancer Cancer Social History Smoking Status: Never smoker Second Hand Exposure: Yes (Mother and Father smoked in home); Do You Dip or Chew Tobacco: No; Hx Alcohol Use: Yes Alcohol type: wine Alcohol Intake Frequency Comment: Wine with dinner at times daily sometimes Hx Substance Use: Yes Last Used Substance: Days (ago) Last Used Substance Other:: 09/03/2023 Substance Use Type Other:: couple times a week.. Preferred Language: Czech Communication Ability: Effective Visual Impairment: Limited Hearing Ability: Normal Animal Control Specialist Required: No Beliefs That Will Affect Care: None marital status: Current Living Situation: Spouse Current Living Situation Comment: current occupational status: retired current occupation: Works for [employer] How many Children do You have: 0 Feels Safe at Home: Yes Childhood Exposure to Second-Hand Smoke: Yes Diet: regular caffeine: Yes (Daily 1-2 cups/day ) during the past year weight has: remained stable Dental Care, Regularly: Yes Physical Activity Frequency: 3-4 Times per Week Seatbelt Use: always Sunscreen Use: Yes Assistive Devices: Glasses Review of Systems Review of Systems: All systems reviewed & are unremarkable except as noted in HPI & below Pain in jaw when yawning only. Physical Exam Constitutional: WD/WN, vitals as above Eyes: PERRL, conjunctivae normal, anicteric sclerae ENMT: external ear and nose normal, oropharynx normal Respiratory: normal respiratory effort, lungs clear to auscultation Cardiovascular: Rate/Rhythm: regular rate and regular rhythm Heart Sounds: no murmur Extremities: normal capillary refill and + pedal edema (1+ b/l pitting edema) Gastrointestinal (Abdomen): normal bowel sounds, soft, nontender, no hepatosplenomegaly Musculoskeletal: no cyanosis or clubbing, extremities motor strength 5/5 Skin: no rashes, warm and dry Neurologic: moves all extremities and awake; not confused Psychiatric: A+Ox3, euthymic affect Results & Data Results & Data Vital Signs (Past 12 Hours) Vital Signs Temp Pulse Pulse Resp BP BP BP 09/04/23 17:00 150/92 H 09/04/23 17:00 72 24 09/04/23 16:45 159/97 H 09/04/23 16:36 67 21 09/04/23 16:18 70 21 09/04/23 16:00 70 09/04/23 16:00 159/98 H 09/04/23 15:54 68 24 09/04/23 15:48 68 22 163/91 H 09/04/23 15:30 171/104 H 09/04/23 15:27 70 18 09/04/23 15:15 71 18 176/109 H 09/04/23 14:53 71 09/04/23 14:48 72 21 09/04/23 14:31 36.3 C L 70 18 174/102 H 09/04/23 14:30 09/04/23 14:00 75 16 09/04/23 13:45 75 16 155/94 H 09/04/23 13:30 76 16 152/92 H 09/04/23 11:44 74 20 191/113 H 09/04/23 11:38 89 09/04/23 11:33 79 20 09/04/23 11:20 36.1 C L 84 20 210/105 H Pulse Ox Pulse Ox O2 Del Method O2 Del Method 09/04/23 17:00 09/04/23 17:00 96 Room Air 09/04/23 16:45 09/04/23 16:36 98 09/04/23 16:18 97 09/04/23 16:00 09/04/23 16:00 09/04/23 15:54 98 Room Air 09/04/23 15:48 98 09/04/23 15:30 09/04/23 15:27 98 09/04/23 15:15 97 09/04/23 14:53 09/04/23 14:48 97 09/04/23 14:31 97 Room Air 09/04/23 14:30 96 Room Air 09/04/23 14:00 95 Room Air 09/04/23 13:45 95 Room Air 09/04/23 13:30 95 Room Air 09/04/23 11:44 97 09/04/23 11:38 09/04/23 11:33 97 Room Air 09/04/23 11:20 98 Room Air Laboratory Results Abnormal lab results 09/04/23 09/04/23 09/04/23 Range/Units 11:26 12:15 12:57 Lymph # (Auto) 1.15 L (1.20-3.40) K/uL Shelby # (Auto) 0.82 H (0.11-0.59) K/uL Activ Coag Time Kaolin 330 H 214 H (94-140) SECONDS Sodium 135 L (136-145) mmol/L Glucose 161 H (70-99(Fasting)) mg/dl POC Glucose (70-99) mg/dl Hemoglobin A1c (4.5-5.6) % Calcium 10.6 H (8.6-10.3) mg/dl AST 43 H (13-39) U/L Troponin I High Sens 240.3 H* (0-20) pg/ml 09/04/23 09/04/23 09/04/23 Range/Units 13:11 13:25 14:44 Lymph # (Auto) (1.20-3.40) K/uL Shelby # (Auto) (0.11-0.59) K/uL Activ Coag Time Kaolin 617 H 207 H (94-140) SECONDS Sodium (136-145) mmol/L Glucose (70-99(Fasting)) mg/dl POC Glucose (70-99) mg/dl Hemoglobin A1c 6.2 H (4.5-5.6) % Calcium (8.6-10.3) mg/dl AST (13-39) U/L Troponin I High Sens 90721.5 H* D (0-20) pg/ml 09/04/23 Range/Units 15:47 Lymph # (Auto) (1.20-3.40) K/uL Shelby # (Auto) (0.11-0.59) K/uL Activ Coag Time Kaolin (94-140) SECONDS Sodium (136-145) mmol/L Glucose (70-99(Fasting)) mg/dl POC Glucose 100 H (70-99) mg/dl Hemoglobin A1c (4.5-5.6) % Calcium (8.6-10.3) mg/dl AST (13-39) U/L Troponin I High Sens (0-20) pg/ml Diagnostic Findings XR chest 1V portable CLINICAL HISTORY: Chest pain, nonspecific TECHNIQUE: Single frontal radiograph of the chest was obtained. Comparison: None available at the time of this dictation. FINDINGS: No lines and tubes are seen. Calcified aortic knob is seen. Right elevated hemidiaphragm. No evidence of pleural effusion or pneumothorax. IMPRESSION: No acute chest disease. Medications Administered ER Medications Given: Aspirin 324mg PO Ondansetron 4mg IV Bilinta 180mg PO Heparin IV bolus and drip ECG Rate (beats per minute): 81 Rhythm: normal sinus Findings: + ST elevation (Anterior) Comparison ECG Date: from (Apr 07, 2004) Change: the following changes noted (ST elevation in anterior leads is new) Code Status & VTE Plan Code Status Full VTE Prophylaxis Plan VTE Prophylaxis will be ordered: Yes PG Care Time/CCT Total # of Minutes Spent Total Time Spent with Patient: Total time spent is greater than 50% in coordination of care (as documented) at patient's floor/unit and/or counseling patient: Coding Level of Care Code 21487 INT INP/OBS CARE 3/75MIN Diagnoses ST elevation myocardial infarction (STEMI) I21.3 Involved coronary artery: unspecified coronary artery Gastroesophageal reflux disease K21.9 Hypothyroidism E03.9 (1) ST elevation myocardial infarction (STEMI) Involved coronary artery: unspecified coronary artery Qualified Code(s): I21.3 - ST elevation (STEMI) myocardial infarction of unspecified site
--- NOTE | 2023-09-04 17:45 | Electrocardiogram Report ---
Test Reason : Blood Pressure : / mmHG Vent. Rate : 081 BPM Atrial Rate : 081 BPM P-R Int : 200 ms QRS Dur : 078 ms QT Int : 372 ms P-R-T Axes : 028 -12 034 degrees QTc Int : 432 ms Normal sinus rhythm Anterior infarct , age undetermined Abnormal ECG When compared with ECG of 07-APR-2004 16:13, Anterior infarct is now Present Confirmed by Gabriel Bryant ([id number]) on 09/04/2023 5:44:43 PM Referred By: Confirmed By:Joseph Bryant
--- NOTE | 2023-09-04 17:46 | Electrocardiogram Report ---
Test Reason : Blood Pressure : / mmHG Vent. Rate : 082 BPM Atrial Rate : 082 BPM P-R Int : 206 ms QRS Dur : 078 ms QT Int : 382 ms P-R-T Axes : 036 -06 024 degrees QTc Int : 446 ms Normal sinus rhythm Anterior infarct (cited on or before 04-SEP-2023) Abnormal ECG When compared with ECG of 04-SEP-2023 11:25, (unconfirmed) No significant change was found Confirmed by Gabriel Bryant ([id number]) on 09/04/2023 5:45:51 PM Referred By: Confirmed By:Joseph Bryant
--- NOTE | 2023-09-04 17:48 | Electrocardiogram Report ---
Test Reason : Blood Pressure : / mmHG Vent. Rate : 072 BPM Atrial Rate : 072 BPM P-R Int : 238 ms QRS Dur : 080 ms QT Int : 416 ms P-R-T Axes : 044 007 048 degrees QTc Int : 455 ms Sinus rhythm with 1st degree A-V block Anteroseptal infarct (cited on or before 04-SEP-2023) Abnormal ECG When compared with ECG of 04-SEP-2023 11:40, (unconfirmed) VA interval has increased Confirmed by Gabriel Bryant ([id number]) on 09/04/2023 5:48:16 PM Referred By: REFERRED SELF Confirmed By:Joseph Bryant
[2023-09-04] MEDS: lisinopril 10 MG TAB PO ONE (17:55)
--- NOTE | 2023-09-04 18:12 | Cardiac Catheterization ---
ACC Data: Cotton Converter Cardiac Status Clinical evaluation leading to the procedure CAD Presenation: STEMI STEMI OR Non-STEMI Symptom Onset Date: 09/04/23 Symptom Onset Time: 09:30 Thrombolytics: No Coronary Anatomy Dominant: Right Left Main (% Stenosis): Distal (30-40) LAD (% Stenosis): Proximal (50 to 70%) and Mid (100%) D1 (% Stenosis): Mid (Less than 30%) Circumflex (% Stenosis): Proximal (30 to 40%) and Mid (Less than 30%) OM1 (% Stenosis): Normal OM2 (% Stenosis): Normal RCA (% Stenosis): Proximal (20%), Mid (30%) and Distal (30%) R PDA (% Stenosis): Normal R PL1 (% Stenosis): Mid (99%) Diagnostic Physicians Name: Marco Mendoza MD, PhD Closure Device Percutaneous Entry Location: Radial Closure Device: Radial Band Recommendations: Medical Therapy and/or Counseling and PCI without planned CABG PCI Indication: PCI for STEMI - Stable Lesion Segment Name: Proximal and mid LAD Culprit Artery: Yes Stenosis Prior to Rx (%): 100% Chronic Total Occlusion: No Pre-Procedure HENRY Flow: 0 Previously Treated Lesion: No Lesion Complexity: High/C Lesion Length (mm): 24 mm Thrombus Present: Yes Bifurcation Lesion: Yes Guidewire Across Lesion: Yes Lesion #2 Segment Name: Mid posterolateral Culprit Artery: No Stenosis Prior to Rx (%): 99% Chronic Total Occlusion: No Pre-Procedure HENRY Flow: 3 Previously Treated Lesion: No Lesion Complexity: Non-High/Non-C Lesion Length (mm): 8 Thrombus Present: No Bifurcation Lesion: No Guidewire Across Lesion: Yes Intraprocedure Events Significant Disection: No Perforation: No Cardiac Cath Procedure Full Procedure Date September 04, 2023 Pre-Procedure Diagnosis Pre-Procedure Diagnosis: STEMI AUC Score AUC Score: 09 Post-Procedure Diagnosis Post-Procedure Diagnosis: Severe CAD and Successful PCI Procedure(s) Performed Procedure(s) Performed: Coronary Angiography and Drug Eluting Stent Armature Bander Marco Mendoza MD, PhD Estimated Blood Loss Estimated Blood Loss: 20 cc Medication(s) Medication(s): Fentanyl, Heparin, Lidocaine 1%, Nicardipine, Nitroglycerin and Versed Summary of Findings Brief description: Patient was brought to the cardiac catheterization suite where he was shaved and prepped in a sterile fashion. Sedated using IV Versed and fentanyl. Soft tissues of the right wrist were anesthetized using 2 mL of 1% Xylocaine. The right radial artery was accessed with a modified Seldinger technique and a 6 Citizen [place] radial artery glide sheath was placed. Patient was provided anticoagulation with IV heparin and antispasmodics including nicardipine and nitroglycerin. All catheters were advanced and exchanged over a 0.035 J-tip wire. Left coronary angiography was performed in orthogonal views with a 6 Citizen [place] EBU 3.0 guide catheter. We proceeded immediately to PCI. Throughout PCI, ACT was checked intermittently and additional heparin was provided as needed to maintain therapeutic ACT. BMW reversal guidewire was advanced through the guide catheter and positioned distally in the LAD. Mid LAD lesion predilated with a 2.0 x 12 mm trek balloon at 8 slime followed by 14 slime. A guide liner [place] extension catheter was advanced over the guidewire to help deliver interventional equipment. A 2.25 x 15 mm [place] drug-eluting stent was advanced but could not be delivered across the lesion. It was removed. Lesion was predilated further with a 2.5 x 12 mm trek balloon with 2 inflations to 8 slime. The proximal lesion was also predilated with the same balloon to 8 slime x 2. The 2.25 x 15 mm [place] drug-eluting stent was then reinserted and successfully positioned across the lesion where it was deployed at 13 slime. Stent balloon was removed. A 2.5 x 15 mm [place] drug-eluting stent was then positioned across the proximal lesion with its distal edge overlapped with the proximal edge of the first stent. The stent was deployed at 14 slime. Stent balloon was removed. Seismic Prospecting Observer Helper angiography was performed. Decision was made to place an additional stent distally. A 2.0 x 8 mm [place] drug-eluting stent was advanced and positioned with its proximal edge overlapped with the distal edge of the mid LAD stent. It was deployed at 12 slime. The overlapped segment was then postdilated initially to 18 slime with a second inflation to 19 slime. The stent balloon was then removed. Patient was provided intracoronary nitroglycerin and then coronary angiography was performed. Guidewire was removed and the guide liner was also removed. Final angiographic evaluation was performed. Guide catheter was then removed. We next proceeded to complete the diagnostic coronary angiography. A 5 Citizen [place] JR4 diagnostic catheter was used to engage the right coronary. Right coronary angiography performed in orthogonal views. Decision was made to proceed with PCI of the large posterolateral branch. The diagnostic catheter was exchanged for a 6 [place] JR4 guide catheter. BMW reversal guidewire was advanced and positioned distally in the posterolateral branch. Lesion was predilated using a 2.5 x 8 mm trek balloon inflated to 8 slime x 2. Attempted to deliver a 2.5 x 15 mm [place] drug-eluting stent but did not have adequate guide support. The stent was then removed and deployed. The guide liner [place] extension catheter was reinserted over the guidewire. Then, the 2.5 x 15 mm [place] drug-eluting stent was successfully delivered across the posterolateral branch. Stent was deployed at 12 slime. Stent balloon was removed. The proximal portion of the stent was postdilated using a 2.5 x 8 mm noncompliant balloon at 14 slime. The balloon was then removed. Seismic Prospecting Observer Helper angiography performed. The guidewire and guide liner were then removed. Final angiographic evaluation was performed. The guide catheter was then removed. Patient was provided Brilinta 180 mg loading dose in the ER. An ACT was checked. The radial artery sheath was then removed and hemostasis was obtained using the TR band. Patient remained hemodynamically stable and asymptomatic. He was returned to the recovery area with plan for admission to the ICU. This ended the case. Coronary angiography findings: [id number] vessel bifurcating into LAD and circumflex. It is calcified with distal 30 to 40% stenosis. LAD-medium to large caliber. Proximal segment has long eccentric stenosis with moderate calcification and 50 to 70% narrowing. It gives a large branching first diagonal which has mild diffuse less than 30% stenosis. Just after the ostium the LAD is 100% occluded. Minimal staining. HENRY 0 flow. LCx-load medium to large caliber. Nondominant. There is an ostial to proximal calcified 30 to 40% stenosis. The mid segment has mild 30% stenosis. Distal vessel has no significant disease and gives an atrial branch before it terminates. Circumflex provides a small OM1 and a large branching OM 2 without significant disease. RCA-very large and dominant. Proximal segment is mildly calcified with mild less than 20% stenosis. Mid segment is also mildly calcified with up to 30% stenosis. Distally there is calcification, ectasia, and less than 30% stenosis. It then bifurcates into a large branching PDA which has mild luminal irregularities and a large multi branching posterolateral. This has focal calcified 99% stenosis just after the first posterior lateral branch. HENRY-3 flow. PCI of LAD-guidewire passed relatively easily across 100% occlusion but the remainder of the findings were suggestive of chronic subtotal occlusion. There was 0% residual stenosis in the proximal and mid LAD post PCI. Distal vessel is small with diffuse luminal irregularities HENRY-3 flow post PCI No evidence of dissection or perforation post PCI PCI of PLB-0% residual stenosis post PCI No evidence of dissection or perforation post PCI HENRY-3 flow post PCI Summary: 1. Patient with severe two-vessel coronary artery disease as described. Culprit is the LAD which was severely and diffusely diseased. Hypertension certainly in part part contributing to patient's symptoms. 2. Successful PCI with implantation of 3 overlapped drug-eluting stents to the LAD and 1 drug-eluting stent in the posterolateral branch. 3. Dual antiplatelet therapy with aspirin and Brilinta for at least 1 to 2 years. 4. Guideline directed medical therapy for secondary prevention of coronary disease will be initiated. This is to include; beta-melania, statin, plus or minus MADONNA inhibitor/ARB in addition to the aspirin. Hemodynamics Rest Ao:: 179/93 mmHg Final Ao: 149/82 mmHg LV: Not performed Recommendations Recommendations: Medical Therapy and/or Counseling and PCI without planned CABG Radiation Exposure (mGy) 3774 mGy, fluoroscopy time 27.6-minute Contrast (mls) 300 mL Anesthesia 2 mg Versed, 100 mcg fentanyl IV. Start 1159, End 1325 Procedural Complication(s) None Disposition ICU I attest to the content of the Intraoperative Record and any orders documented therein. Any exceptions are noted below. [facility] Card Cath Procedure Codes Cardiac Catheterization Procedure 1: Cardiovascular Cath Procedures: 44005 Coronaries Moderate Sedation Procedure 1: Sedation/Anesthesia: 90962 Mod Sedation by the same physician;Init15 Min Child Age 5 & Up (Initial 15 min, start time 1159) Procedure 2: Sedation/Anesthesia: 84516 Mod Sedation by the same physician; Ea [id number] Minutes (Additional 71 MIN, end time 1325) Stenting Procedure 1: Cardiovascular Stent Procedures: 04063 Perc transluminal revascularization of acute sub/total occl, aMI (LAD) Procedure 2: Cardiovascular Stent Procedures: 17186 Perc transcatheter placement of intracoronary stent(s), with ang (Posterolateral) PG Care Time/CCT Total # of Minutes Spent Total Time Spent with Patient: Total time spent is greater than 50% in coordination of care (as documented) at patient's floor/unit and/or counseling patient:
--- NOTE | 2023-09-04 18:48 | Cardiology Consultation ---
Date of Consultation September 04, 2023 Assessment & Plan (1) ST elevation myocardial infarction (STEMI): Severe two-vessel coronary artery disease status post PCI of LAD and circumflex. Dual antiplatelet therapy with aspirin and Brilinta to complete 1 to 2 years. Patient will be placed in the ICU for further workup and management. Will need to obtain an echocardiogram. Evaluate for additional risk factors for coronary disease including occult diabetes. He has hypertension and dyslipidemia. Also with a history of thyroid cancer and radiation therapy which increases the risk of atherosclerosis. Assuming that he has no significant complications he will likely be appropriate for discharge at 48 hours. Initiating guideline directed medical therapy for secondary prevention of coronary disease. Beta-melania, statin, and MADONNA inhibitor or angiotensin receptor melania. (2) Dyslipidemia: Patient is high risk. High intensity statin therapy is recommended. He was taking rosuvastatin 10 mg daily. Will check a fasting lipid panel with target LDL reduction to be aggressive. He has palpitations listed for side effect of atorvastatin but he should tolerate atorvastatin in the short run and then we can change him back to rosuvastatin at a higher dose upon discharge. History of Present Illness Reason for Consultation: ST elevation WI Attending Physician: Marco Mendoza MD, PhD History of Present Illness Pleasant 68-year-old gentleman presented to the [facility] emergency department after developing sudden onset chest discomfort while sitting at his desk. Patient recently returned after a long flight from [place] to the [facility]. He was participating and observing the X[employer] day ceremonies with his and his [id number] father who is a of [employer]. Patient had been in his usual state of health until the day of presentation. In fact, he had done a lot of walking and climbing and had no symptoms until he was sitting at his desk. In the emergency department he was found to have very elevated blood pressure which is unusual for him. Typically, his blood pressure is no more than the mid 140s systolic. His EKG showed subtle ST elevations in anterior leads and a "heart alert" was called. On my arrival his blood pressure was over 196 systolic and he had ongoing chest discomfort which was significant. This radiated up into his neck and felt like squeezing and pressure. He was fairly uncomfortable and although the EKG was not overly impressive I suggested to him that he needed to go emergently to the cardiac catheterization suite for definitive evaluation. There, cardiac catheterization revealed severe two- vessel coronary disease including the LAD. He had 3 stents placed in the LAD and an additional stent placed in the large posterolateral branch. Tolerated the procedure well and is now admitted to the ICU. Prior to today, the patient denies any anginal chest pain, dyspnea on exertion, syncope, near syncope, orthopnea, PND, racing heartbeat, palpitations, or edema. He had in fact undergone stress test earlier this year which was without any evidence of ischemia. Currently he is feeling much better with no further neck discomfort and minimal chest pressure. Allergies Allergy/AdvReac Type Severity Reaction Status Date / Time atorvastatin [From Lipitor] Allergy Unknown heart Verified 08/07/23 11:37 palpitation bee venom protein (honey bee) Allergy Unknown swelling Verified 08/07/23 11:37 as a child Penicillins Allergy Unknown SWELLING Verified 08/07/23 11:37 A CHILD simvastatin Allergy Unknown heart Verified 08/07/23 11:37 palpitation tetanus toxoid, adsorbed Allergy Unknown SWELLING Verified 08/07/23 11:37 A CHILD Home Medications Medication Instructions Recorded Confirmed Type meloxicam 15 mg tablet 15 mg PO UD PRN back pain #30 tabs 08/28/21 09/04/23 Rx omeprazole 20 mg capsule,delayed 20 mg PO QAM #90 caps 07/22/23 09/04/23 Rx release levothyroxine 88 mcg tablet 88 mcg PO QAM #90 tabs 08/07/23 09/04/23 Rx rosuvastatin 10 mg tablet 10 mg PO DAILY #90 tabs 08/07/23 09/04/23 Rx Patient History Medical History Thyroid disease Bilateral carotid artery disease LAST CHECK AFTER RADIATION COMPLETE LAST YR, "BOTH UNDER 50%" Inguinal hernia Bilateral Tubular adenoma of colon HX Surgical History History of biopsy 09/03/19 - Right Base of Tongue - Squamous Cell - HPV Pos Status post tendon repair HX 2011 - left arm--hardware in place History of colonoscopy with polypectomy 2014 History of tooth extraction 2016 - a cracked molar History of surgical removal of pilonidal cyst 1969, 1970, 1992 History of tonsillectomy as a child Family History Mother , Passed age 90 of dementia complications Alzheimer disease Hx of CABG Myocardial infarction Brother Coronary heart disease Hx of CABG Father Hx of CABG Sister No problems noted. Other Has no children No family history of adverse response to anesthesia Denies family history of Ovarian cancer Prostate cancer Breast cancer Lung cancer Colorectal cancer Cancer Social History Smoking Status: Never smoker Second Hand Exposure: Yes (Mother and Father smoked in home); Do You Dip or Chew Tobacco: No; Hx Alcohol Use: Yes Alcohol type: wine Alcohol Intake Frequency Comment: Wine with dinner at times daily sometimes Hx Substance Use: Yes Last Used Substance: Days (ago) Last Used Substance Other:: 09/03/2023 Substance Use Type Other:: couple times a week.. Preferred Language: Tajik Communication Ability: Effective Visual Impairment: Limited Hearing Ability: Normal Laborer Sawmill Required: No Beliefs That Will Affect Care: None marital status: Current Living Situation: Spouse Current Living Situation Comment: current occupational status: retired current occupation: Works for [employer] How many Children do You have: 0 Other Information That Helps Us Care for You: No Feels Safe at Home: Yes Safety Concerns: Feels Safe At This Time Childhood Exposure to Second-Hand Smoke: Yes Diet: regular caffeine: Yes (Daily 1-2 cups/day ) during the past year weight has: remained stable Dental Care, Regularly: Yes Physical Activity Frequency: 3-4 Times per Week Seatbelt Use: always Sunscreen Use: Yes Assistive Devices: Glasses Review of Systems Review of Systems: Negative except as per HPI Physical Exam Constitutional: WD/WN, vitals as above Eyes: Extraocular muscles intact. Sclera are anicteric. ENMT: Oral mucosa is pink moist and intact Neck: No JVD or bruit Respiratory: Clear to auscultation bilaterally. No wheezing, rhonchi, or rales. Cardiovascular: Regular rate and rhythm. S4 gallop. Do not appreciate any rubs or murmurs today. No edema. 2+ distal pulses. Musculoskeletal: no cyanosis or clubbing, extremities motor strength 5/5 Neurologic: Cognition is intact. Speech is fluent. No focal deficits. Moves 4 extremities voluntarily. Psychiatric: A+Ox3, euthymic affect Results & Data Vital Signs (Past 12 Hours) Vital Signs Temp Pulse Pulse Resp BP BP BP 09/04/23 18:06 78 16 09/04/23 18:00 138/83 09/04/23 17:49 141/86 H 09/04/23 17:42 18 09/04/23 17:00 150/92 H 09/04/23 17:00 72 24 09/04/23 16:45 159/97 H 09/04/23 16:36 67 21 09/04/23 16:18 70 21 09/04/23 16:00 37 C 09/04/23 16:00 70 09/04/23 16:00 159/98 H 09/04/23 15:54 68 24 09/04/23 15:48 68 22 163/91 H 09/04/23 15:30 171/104 H 09/04/23 15:27 70 18 09/04/23 15:15 71 18 176/109 H 09/04/23 14:53 71 09/04/23 14:48 72 21 09/04/23 14:31 36.3 C L 70 18 174/102 H 09/04/23 14:30 09/04/23 14:00 75 16 09/04/23 13:45 75 16 155/94 H 09/04/23 13:30 76 16 152/92 H 09/04/23 11:44 74 20 191/113 H 09/04/23 11:38 89 09/04/23 11:33 79 20 09/04/23 11:20 36.1 C L 84 20 210/105 H Pulse Ox Pulse Ox O2 Del Method O2 Del Method 09/04/23 18:06 96 Room Air 09/04/23 18:00 09/04/23 17:49 09/04/23 17:42 97 09/04/23 17:00 09/04/23 17:00 96 Room Air 09/04/23 16:45 09/04/23 16:36 98 09/04/23 16:18 97 09/04/23 16:00 09/04/23 16:00 09/04/23 16:00 09/04/23 15:54 98 Room Air 09/04/23 15:48 98 09/04/23 15:30 09/04/23 15:27 98 09/04/23 15:15 97 09/04/23 14:53 09/04/23 14:48 97 09/04/23 14:31 97 Room Air 09/04/23 14:30 96 Room Air 09/04/23 14:00 95 Room Air 09/04/23 13:45 95 Room Air 09/04/23 13:30 95 Room Air 09/04/23 11:44 97 09/04/23 11:38 09/04/23 11:33 97 Room Air 09/04/23 11:20 98 Room Air PG Care Time/CCT Total # of Minutes Spent Total Time Spent with Patient: Total time spent is greater than 50% in coordination of care (as documented) at patient's floor/unit and/or counseling patient: Coding Level of Care Code 41862 CRITICAL CARE 1ST 30-74M Diagnoses ST elevation myocardial infarction (STEMI) I21.3 Involved coronary artery: unspecified coronary artery Dyslipidemia E78.5 Time Spent (min) 55 (1) ST elevation myocardial infarction (STEMI) Involved coronary artery: unspecified coronary artery Qualified Code(s): I21.3 - ST elevation (STEMI) myocardial infarction of unspecified site
[2023-09-04] MEDS: METOPROLOL TARTRATE 25 MG TAB PO SCH (20:59)
[2023-09-05 05:18] LABS: Basophils # (auto) 0.04 K/uL (0.00-0.20); Basophils % (auto) 0.3 %; Eosinophils # (auto) 0.22 K/uL (0.00-0.50); Eosinophils % (auto) 1.9 %; Hematocrit (blood only) 46.3 % (42.0-52.0); Hemoglobin 15.8 g/dl (14.0-18.0); Immature Granulocytes # (auto) 0.06 K/uL (0.01-0.20); Immature Granulocytes % (auto) 0.5 %; Lymphocytes # (auto) 0.77 K/uL (1.20-3.40); Lymphocytes % (auto) 6.7 %; Mean Corpuscular Hemoglobin 31.7 pg (25.0-34.0); Mean Corpuscular Hgb Conc 34.1 g/dL (32.0-36.0); Mean Corpuscular Volume 92.8 fL (80.0-100.0); Mean Platelet Volume 9.7 fL (9.4-12.4); Monocytes # (auto) 0.89 K/uL (0.11-0.59); Monocytes % (auto) 7.7 %; Neutrophils # (auto) 9.54 K/uL (1.40-6.50); Neutrophils % (auto) 82.9 %; Platelet Count 254 K/uL (130-400); RDW Coefficient of Variation 13.3 % (11.5-14.5); RDW Standard Deviation 45.3 fL (36.4-46.3); Red Blood Count 4.99 M/uL (4.70-6.10); White Blood Count 11.52 K/ul (4.8-10.8)
[2023-09-05 05:31] LABS: Calcium 9.3 mg/dl (8.6-10.3); Chol HDL Ratio 2.8 (0-5); Creatinine Clr Calc Pharmacy 65.1 ml/min; Est GFR (African American) 79.3 ml/min; Est GFR (Non-African American) 68.4 ml/min; Magnesium 1.9 mg/dl (1.7-2.4); Phosphorus 3.2 mg/dl (2.5-4.9); Potassium 4.2 mmol/L (3.5-5.1)
[2023-09-05 05:40] LABS: Troponin I High Sensitivity 22825.4 pg/ml (0-20)
[2023-09-05] MEDS: MAGNESIUM SULFATE / D5W 1 GM/100 ML BAG IV ONE (06:35)
[2023-09-05] MEDS: LEVOTHYROXINE SODIUM 88 MCG TABLET PO SCH (06:35)
--- NOTE | 2023-09-05 07:50 | Critical Care Progress Note ---
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: (6) Gastroesophageal reflux disease: (7) Calf pain: Plan -- Coronary artery disease S/p FLAKITO LAD and RCA Continue with dual antiplatelet therapy -- Hypertension New Has been started on metoprolol 25 twice daily --Calf pain Homans' sign negative Does have +2 pitting edema bilateral lower extremity, L>R which is chronic Doppler bilateral lower extremity negative on 09/04/2023 -- Hypothyroidism On levothyroxine at home --Mildly elevated calcium 10.6 with normal albumin --> 9.3 Parathyroid within normal limit --History of head and neck cancer, right side of the tongue S/p surgery radiation and chemo --Elevated right hemidiaphragm Likely secondary to surgery and radiation on the right side --Prophylaxis VTE: IPC GI: Pantoprazole Lines: Peripheral Diet: Cardiac Plan: In/out: +1190, urine output 850 mL Magnesium being replaced Blood pressure better controlled, continue with metoprolol, addition of MADONNA inhibitor will be started in the near future. Patient is hemodynamically stable Disposition as per cardiology and primary team Please note the above document was generated using voice recognition software. It may contain grammatical, syntax or spelling errors.Any formal questions or concerns about the content, text or information contained within the body of this dictation should be directly addressed to the provider for clarification. Admission and Anticipated Discharge Date Admission Date: September 04, 2023 Subjective Patient seen and examined at bedside. No acute distress, no adverse events overnight Denies any chest pain, no headache, no nausea, no vomiting Finished his breakfast, no difficulty swallowing. Fair appetite No shortness of breath Review of Systems 2 Review of Systems: All systems reviewed & are unremarkable except as noted in Subjective Physical Exam 2 Physical Exam: Constitutional: No acute distress HEENT: EOMI, PERRLA Respiratory system: Decreased into the right lower side, no wheeze, rhonchi, mild crackles bilateral lower lobes CVS: S1-S2 positive, no murmurs or gallops Abdomen: Soft, nontender, nondistended, positive bowel sounds x4, obese Extremities: +2 pulses bilaterally radialis/ dorsalis pedis, no cyanosis, +2 pitting edema bilateral lower extremity Neuro: Awake alert oriented x3 Psych: Normal mood and affect G/U: No Eli Skin: no rashes, warm and dry Lymphatic: no cervical or axillary lymphadenopathy Results & Data Results & Data Vital Signs (Past 12 Hours) Vital Signs Pulse Resp BP Pulse Ox 09/05/23 07:31 86 09/05/23 05:00 79 23 94 09/05/23 05:00 121/70 09/05/23 04:18 71 23 93 09/05/23 03:15 78 19 93 09/05/23 03:00 127/79 09/05/23 02:54 72 17 96 09/05/23 02:03 65 18 94 09/05/23 02:00 123/63 09/05/23 01:54 66 17 97 09/05/23 01:00 74 16 96 09/05/23 00:21 74 20 95 09/04/23 23:03 62 19 96 09/04/23 22:12 62 17 95 09/04/23 21:00 124/78 09/04/23 21:00 30 H 93 09/04/23 20:06 72 23 95 09/04/23 20:00 143/79 H 09/04/23 19:51 73 22 95 Laboratory Results 09/05/23 04:42 09/05/23 04:42 Coding Level of Care Code 69918 SUB INP/OBS CARE 2/35MIN Diagnoses Chest pain R07.9 Chest pain type: unspecified History of throat cancer Z85.819 Dyslipidemia E78.5 Hypothyroidism E03.9 Primary squamous cell carcinoma of base of tongue C01 Gastroesophageal reflux disease K21.9 Calf pain M79.669 (1) Chest pain Chest pain type: unspecified Qualified Code(s): R07.9 - Chest pain, unspecified
[2023-09-05] MEDS: ASPIRIN 81 MG ECTAB PO SCH (08:14)
[2023-09-05] MEDS: TICAGRELOR 90 MG TAB PO SCH (08:14)
[2023-09-05] MEDS: ROSUVASTATIN CALCIUM 10 MG TAB PO SCH (11:31)
--- NOTE | 2023-09-05 11:39 | XCELERA ---
[id number] [id number]
[2023-09-05] MEDS: ATORVASTATIN 40 MG TAB PO SCH (12:29)
--- NOTE | 2023-09-05 17:18 | Electrocardiogram Report ---
Test Reason : Blood Pressure : / mmHG Vent. Rate : 083 BPM Atrial Rate : 083 BPM P-R Int : 206 ms QRS Dur : 080 ms QT Int : 388 ms P-R-T Axes : 032 068 099 degrees QTc Int : 455 ms Normal sinus rhythm ST changes concerning for ischemia Abnormal ECG When compared with ECG of 04-SEP-2023 13:35, SC interval has decreased T wave inversion now evident in Lateral leads Confirmed by Gabriel Bryant ([id number]) on 09/05/2023 5:17:38 PM Referred By: REFERRED SELF Confirmed By:Joseph Bryant
--- NOTE | 2023-09-05 23:01 | Hospitalist Progress Note ---
Date of Service September 05, 2023 Assessment & Plan (1) ST elevation myocardial infarction (STEMI): Plan: s/p cardiac catheterization - ASA, Brilinta, metoprolol, atorvastatin Patient is now downgraded to PCU Need to monitor him 48 hours after cardiac cath (2) Gastroesophageal reflux disease: Plan: Switch omeprazole for pantoprazole per hospital formulary (3) Hypothyroidism: Plan: TSH WNL in July, no need to repeat Continue his usual levothyroxine dosing Plan VTE Prophylaxis - dual antiplatelets Diet - heart healthy Disposition - admit to ICU Admission and Anticipated Discharge Date Admission Date: September 04, 2023 Subjective Patient reports doing well. He has no new complaints. Review of Systems Review of Systems: All systems reviewed & are unremarkable except as noted in HPI & below Physical Exam Physical Exam: Constitutional: No acute distress HEENT: EOMI, PERRLA Respiratory system: clear CVS: S1-S2 positive, no murmurs or gallops Abdomen: Soft, nontender, nondistended, positive bowel sounds x4, obese Extremities: +2 pulses bilaterally radialis/ dorsalis pedis, no cyanosis, +2 pitting edema bilateral lower extremity Neuro: Awake alert oriented x3 Psych: Normal mood and affect G/U: No Eli Results & Data Results & Data Vital Signs (Past 12 Hours) Vital Signs Temp Pulse Pulse Resp BP BP Pulse Ox 09/05/23 22:40 37.0 C 80 18 110/69 95 09/05/23 20:53 09/05/23 19:36 37.2 C 87 18 122/76 95 09/05/23 16:29 36.8 C 87 20 114/72 94 09/05/23 15:15 87 09/05/23 14:15 81 09/05/23 13:15 36.8 C 84 18 108/68 96 09/05/23 12:03 79 24 96 09/05/23 12:00 79 20 135/87 97 O2 Del Method 09/05/23 22:40 Room Air 09/05/23 20:53 Room Air 09/05/23 19:36 Room Air 09/05/23 16:29 Room Air 09/05/23 15:15 09/05/23 14:15 09/05/23 13:15 Room Air 09/05/23 12:03 09/05/23 12:00 Room Air PG Care Time/CCT Total # of Minutes Spent Total Time Spent with Patient: Total time spent is greater than 50% in coordination of care (as documented) at patient's floor/unit and/or counseling patient: Coding Level of Care Code 72175 SUB INP/OBS CARE 2/35MIN Diagnoses ST elevation myocardial infarction (STEMI) I21.3 Involved coronary artery: unspecified coronary artery Gastroesophageal reflux disease K21.9 Hypothyroidism E03.9 (1) ST elevation myocardial infarction (STEMI) Involved coronary artery: unspecified coronary artery Qualified Code(s): I21.3 - ST elevation (STEMI) myocardial infarction of unspecified site
[2023-09-06 06:54] LABS: BUN Creatinine Ratio 13.5 (10-20); Creatinine Clr Calc Pharmacy 68.2 ml/min; Est GFR (African American) 83.9 ml/min; Est GFR (Non-African American) 72.4 ml/min; Phosphorus 2.7 mg/dl (2.5-4.9)
[2023-09-06] MEDS: PNEUMOCOCCAL VACCINE (PCV20) 20-VAL CONJ-DIP CRM/PF 0.5 ML SYR IM ONE (07:57)
--- NOTE | 2023-09-06 13:05 | Discharge Summary ---
Date of Service September 06, 2023 Admission HPI Per Admitting Provider Vincenzo Li is a 68 year old male with significant family history of coronary artery disease who presents to the ER with chest pain. Severity 8/10 chest pain started today around 9am. Associated nausea and vomiting. No diaphoresis or shortness of breath. Substernal. Worse on lying flat. No change on exertion. No radiation. Initially felt it was heartburn but after 2 hours of it becoming persistently he decided to come to the ER. He reports arriving back from [place] yesterday and drove back from [place]. Leg edema is not new and he has no leg pain. No palpitations or dizziness. Patient was seen post cardiac sondra terization with resolution of his pain. Principal Diagnosis STEMI Discharge Exam Constitutional: No acute distress HEENT: EOMI, PERRLA Respiratory system: clear CVS: S1-S2 positive, no murmurs or gallops Abdomen: Soft, nontender, nondistended, positive bowel sounds x4, obese Extremities: +2 pulses bilaterally radialis/ dorsalis pedis, no cyanosis Neuro: Awake alert oriented x3 Psych: Normal mood and affect G/U: No Eli Discharge Data Allergies Allergy/AdvReac Type Severity Reaction Status Date / Time atorvastatin [From Lipitor] Allergy Unknown heart Verified 08/07/23 11:37 palpitation bee venom protein (honey bee) Allergy Unknown swelling Verified 08/07/23 11:37 as a child Penicillins Allergy Unknown SWELLING Verified 08/07/23 11:37 A CHILD simvastatin Allergy Unknown heart Verified 08/07/23 11:37 palpitation tetanus toxoid, adsorbed Allergy Unknown SWELLING Verified 08/07/23 11:37 A CHILD Consultations 09/04/23 11:47 Consult Cardiac Catheterization Stat 09/04/23 11:58 ED Decision to Admit Stat 09/04/23 13:57 Consult Substitute Crossing Guard Stat 09/04/23 14:53 Consult Substitute Crossing Guard Routine Procedures Performed Operation Date: 09/04/23 11:45 Actual Procedures s Cineradiography w/Routine Exam - Marco Mendoza MD, PhD p Cath, Coronaries ONLY (no LV) - Marco Mendoza MD, PhD p Drug Eluting Stent SGl Vessel - Marco Mendoza MD, PhD Ordered Studies 09/04/23 11:43 CL Cath Imgs for PACS use only Stat 09/04/23 14:54 US venous doppler LE BI Stat Hospital Course (1) ST elevation myocardial infarction (STEMI): s/p cardiac catheterization - Severe two-vessel coronary artery disease status post PCI of LAD and circumflex. Dual antiplatelet therapy with aspirin and Brilinta to complete 1 to 2 years. History of thyroid cancer and radiation therapy which increases the risk of atherosclerosis. ASA, Brilinta, metoprolol, rosuvastatin Patient is now downgraded to PCU Patient was monitored for 48 hours and was discharged. (2) Gastroesophageal reflux disease: Switch omeprazole for pantoprazole per hospital formulary (3) Hypothyroidism: TSH WNL in July, no need to repeat Continue his usual levothyroxine dosing Total Time Total Time Spent Total Time Spent (In Minutes): 32 Discharge Plan Discharge Items Patient Disposition: Home - Self-Care Reason For Visit: heart alert Discharge Diagnosis: heart alert Activity: As commented below Non-emergency contact: Primary Care Provider Call non-emergency contact if: you have any medication questions Follow-up/Referrals: Shannon Holcomb DO [Primary Care Provider] - 09/10/23 11:00 am (Scheduled 09/10/2023 with Brenda Cunningham at 11:00 am) Diet: Heart Healthy Addtl Attending Provider Instructions: Home Care: * Take your medications exactly as directed. Don't skip doses. * Remember that recovery after a heart attack takes time. Plan to rest for at lease 4-8 weeks while you recover. Then return to normal activity when your doctor says it's okay. * Ask your doctor about joining a heart rehabilitation program. * Tell your doctor if you are feeling depressed. Feelings of sadness are common after a heart attack, but it is important that you speak to someone if you are feeling overwhelmed by these feelings. * If you are having chest pain, call 911 for an ambulance. Do NOT drive yourself to the hospital. * Ask your family members to learn CPR. * Learn to take your own blood pressure and pulse. Keep a record of your results. Ask your doctor when you should seek emergency medical attention. He or she will tell you which blood pressure reading is dangerous. Lifestyle Changes: * Maintain a healthy weight. Get help to lose any extra pounds. * Cut back on salt. * Limit canned, dried, packaged, and fast foods. * Don't add salt to your food. * Season foods with herbs instead of salt when you cook. * Break the smoking habit. Enroll in a stop-smoking program to improve your chances of success. * Limit fatty foods. * Ask your doctor about having your lipid levels checked regularly. * Build up your activity according to your doctor's recommendation. * Ask your doctor when it's okay to resume sexual activity. * Tell your doctor about any erectile dysfunction (ED) medication you are taking. Some ED medications are not safe if you take certain heart medications. * Try to manage stress. Follow Up: It is important for you to keep your follow up appointments with your medical provider. Please limit strenuous activity for next 2 weeks until cleared by Cardiology. Pending Studies at Discharge: No Stand-Alone Forms: My [facility], Smoking Cessation Medications and DC Order Prescriptions: New Brilinta 90 mg Tablet 90 mg PO BID Qty: 60 0RF metoprolol succinate 50 mg tablet extended release 24 hr 50 mg PO PM Qty: 30 0RF aspirin 81 mg Tablet,Delayed Release (Dr/Ec) 81 mg PO QAM Qty: 30 0RF pantoprazole 40 mg Tablet,Delayed Release (Dr/Ec) 40 mg PO QAM Qty: 30 0RF Continued rosuvastatin 10 mg tablet 10 mg PO DAILY Qty: 90 3RF levothyroxine 88 mcg tablet 88 mcg PO QAM Qty: 90 3RF Discontinued meloxicam 15 mg tablet 15 mg PO UD PRN (Reason: back pain) Qty: 30 5RF omeprazole 20 mg capsule,delayed release(DR/EC) 20 mg PO QAM Qty: 90 3RF Discharge Orders: Discharge Order (Routine); Ordered 09/06/23 Ordered By: Bear Khanna/Other Patient Handouts: Ticagrelor Oral Tablet, Prediabetes, 5 Steps for Eating Healthier Admission Data Admit Date/Time: 09/04/23 12:05 Attending Provider: Bear Jha Admit Provider: Ran Martin Primary Care Provider: Shannon Holcomb Other Providers: Beba Menezes; Marco Mendoza; Ran Martin; Boubacar Amezquita; Mp Max; Jimy eLmus; Jose Venegas; Aristides Christy; Fernando Leblanc; Dolly Taylor; Nicolette Tabor; Billy Gautam; Moise Dsouza; Dulce Harrington Other Interventions: Discharge Summary Assessment (RN) Last Done: 09/06/23 13:39 Coding Level of Care Code 73796 INP/OBS DISCH >[address] elevation myocardial infarction (STEMI) I21.3 Involved coronary artery: unspecified coronary artery Gastroesophageal reflux disease K21.9 Hypothyroidism E03.9
== END 2023-09-06 14:05 | disposition home or self-care (01) | DRG 321 ==
LOC: ED 11:18 → CC 12:04 → SUATTDRO 12:05 → 1E 12:05 → 2E 09-05 13:12
PROC: CLB.CCO (2023-09-04 11:45)